=== PATIENT | male | born 1960 | race Caucasian/White ===

== ENCOUNTER 2018-07-06 13:39 | Emergency (ER) | payer OTHER ==
[2018-07-06 13:43] VITALS: BP 213/90
--- NOTE | 2018-07-06 14:24 | ER Document Report ---
ED Oral Problem - General Chief Complaint: Toothache Stated Complaint: TOOTH PAIN Time Seen by Provider: 07/06/18 14:04 Mode of Arrival: Ambulatory Information source: Patient Notes: Patient is a 58-year-old male comes emergency room requesting pain medication for a abscessed tooth. Patient states she started with pain last and it started throbbing then. He went saw the dentist on 07/05/2018 was prescribed amoxicillin and told to come back next when he would remove the tooth. He also told patient to get [id number] anti-inflammatories which he did the Tylenol ibuprofen and patient has been taking them since last night and states that they are not effective. He states that he recall the dentist and asking for something stronger in the dentist told him "when the antibiotic kicks in the pain will go away". Patient then went to the [facility] and asked him for something for pain and according to patient they told him that there was nothing they could do to handle the request. He stated he was confused with that answer. So he is come to our ER requesting pain medication. TRAVEL OUTSIDE OF THE [place] IN LAST 30 DAYS: No - HPI Patient complains to provider of: Swelling of jaw Onset: Last week Onset: Gradual Quality of pain: Sharp, Throbbing Severity: Severe Pain Level: 5 Swollen jaw/face: Mild Associated symptoms: Facial pain, Toothache Worsened by: Heat Relieved by: Nothing Similar symptoms previously: Yes Recently seen / treated by doctor/dentist: Yes - Related Data Allergies/Adverse Reactions: No Known Allergies Allergy (Verified 07/06/18 13:40) Past Medical History - General Information source: Patient - Social History Smoking Status: Current Every Day Smoker Cigarette use (# per day): Yes - 1 pack a day Chew tobacco use (# tins/day): No Smoking Education Provided: Yes Frequency of alcohol use: History of abuse Drug Abuse: None Family History: Reviewed & Not Pertinent Patient has suicidal ideation: No Patient has homicidal ideation: No - Past Medical History Cardiac Medical History: Reports: Hx Hypertension Renal/ Medical History: Denies: Hx Peritoneal Dialysis Review of Systems - Review of Systems Constitutional: No symptoms reported EENT: No symptoms reported, Dental problem Cardiovascular: No symptoms reported Respiratory: No symptoms reported Gastrointestinal: No symptoms reported Genitourinary: No symptoms reported Male Genitourinary: No symptoms reported Musculoskeletal: No symptoms reported Skin: No symptoms reported Hematologic/Lymphatic: No symptoms reported Neurological/Psychological: No symptoms reported -: Yes All other systems reviewed and negative Physical Exam - Vital signs Vitals: Temp Pulse Resp BP Pulse Ox 98.1 F 62 18 213/90 H 97 07/06/18 13:42 07/06/18 13:42 07/06/18 13:42 07/06/18 13:42 07/06/18 13:42 Interpretation: Hypertensive - Notes Notes: PHYSICAL EXAMINATION: GENERAL: Patient is a well-nourished well-developed obese male who is in mild discomfort/mild distress/series pain. Patient showing some signs of anxiety secondary to getting Tylenol for pain medications. HEAD: normocephalic. Physical examination the patient is external features on his face show that he does have some mild swelling at the lower jaw. It is nonfluctuant and has no colored changes at this time. Mild tenderness to palpation on the external portion of the left jaw. EYES: Pupils equal round and reactive to light, extraocular movements intact, sclera anicteric, conjunctiva are normal. ENT: Nares patent, oropharynx clear without exudates. Moist mucous membranes. Further examination of patient's mental status shows he has multiple areas of dental decay in his mouth with multiple areas of extracted teeth. All previously done for period of time. Further investigation shows that patient's complaint area today is tooth #18 it still has a full body however it is decayed the superior portion of the tooth in the midsection. A large amount of decay right down the middle. There is also noted with pressure applied to the external gum on the lateral side of the tooth a small amount of pus is expressed from the gumline. This would correlate with the swelling on the lower jaw. NECK: Normal range of motion, supple. LUNGS: Breath sounds clear to auscultation bilaterally and equal. No wheezes rales or rhonchi. HEART: Regular rate and rhythm without murmurs Musculoskeletal: Normal range of motion, no pitting or edema. No cyanosis. NEUROLO Normal speech, normal gait. Normal sensory, motor exams PSYCH: Anxious SKIN: Warm, Dry, normal turgor, no rashes or lesions noted. Course - Re-evaluation Re-evalutation: 07/06/18 14:24 Prior to going in the room I did look patient up on the [facility] aware line and he has no history of drug-seeking behavior. I went in and did my examination listening to his story and he [facility] which inadvertently on it informed me that patient was recovering alcoholic. I offered patient a dental block which I informed him would give him anywhere from 6-12 hours of relief and explained it to him in detail and patient refused a dental block stating "I do not want a shot". At this point I asked patient what he was looking for and he informed me that he did not want anything strong and we could not take codeine because it upsets his stomach. I told patient I would liberate and see what I could come up with. At this juncture since he was turned down by the dentist and saw him and was [facility] down by the [facility] I have no choice but to also do so. I am not going to write him for any hydrocodone or Percocet etc. I am going to recheck the [facility] compromise and I would write him for 12 tramadol 50 mg enough to get him into 3 days of the antibiotics where the pain should stop. I will inform him that there will be no more filling of this medication by the hospital here. - Vital Signs Vital signs: Temp Pulse Resp BP Pulse Ox 98.1 F 62 18 213/90 H 97 07/06/18 13:42 07/06/18 13:42 07/06/18 13:42 07/06/18 13:42 07/06/18 13:42 Discharge - Discharge Clinical Impression: Dental abscess Condition: Stable Disposition: HOME, SELF-CARE Instructions: Abscess ([facility]), Oral Narcotic Medication ([facility]), Toothache ([facility]) Additional Instructions: As I told you I cannot fix your problem we are not dentists here. You have taken the first steps in order to get it fixed. Continue taking your antibiotic as directed by her dentist. Continue with the anti-inflammatory medications as they are directed as well. I am going to add a couple of days of tramadol onto your medication list. This will be as much as we can do out of the hospital here. I truly believe that the dental block would have been an answer to partial of her problem to get you pretty much 100% relief for the next several hours. However you have declined that shot so as stated continue with your current medications. Should you have any desire at a later date to have the dental block return to ER. Prescriptions: Tramadol HCl [Ultram 50 mg Tablet] 50 mg PO ASDIR PRN #12 tablet PRN Reason: Forms: Elevated Blood Pressure [facility] - Follow up as needed
== END 2018-07-06 14:45 | disposition home or self-care (01) ==
LOC: ER 13:39
DX: K04.7 Periapical abscess without sinus (principal); F17.210 Nicotine dependence, cigarettes, uncomplicated; I10 Essential (primary) hypertension
CPT/HCPCS: 99282